=== PATIENT | female | born 1945 | race Caucasian/White ===

== ENCOUNTER → 2018-01-22 | Outpatient (CLI) | payer OTHER ==
[~2018-01-22] MED LIST: ASPI325 PO; ATOR40TA; CLOP75; HYDCHL12.5 PO; MELO7.5; META800
[2018-01-22 11:44] LABS: BASOPHILS ABSOLUTE AUTO 0.05 K/mm3 (0.00-0.23); BASOPHILS PERCENT AUTO 1 % (0-2); EOSINOPHILS ABSOLUTE AUTO 0.06 K/mm3 (0.00-0.68); EOSINOPHILS PERCENT AUTO 1 % (0-6); Hematocrit 44.7 % (33.0-51.0); Hemoglobin 16.2 g/dL (11.5-16.0); IMMATURE GRAN ABSOLUTE AUTO 0.08 K/mm3 (0.00-0.10); IMMATURE GRAN PERCENT AUTO 1 % (0-1); LYMPHOCYTES ABSOLUTE AUTO 1.32 K/mm3 (0.84-5.20); LYMPHOCYTES PERCENT AUTO 13 % (21-46); MONOCYTES ABSOLUTE AUTO 0.38 K/mm3 (0.16-1.47); MONOCYTES PERCENT AUTO 4 % (4-13); Mean Corpuscular HGB 31.2 pg (26.0-34.0); Mean Corpuscular HGB Conc 36.2 g/dL (31.5-36.5); Mean Corpuscular Volume 86 fL (80-100); Mean Platelet Volume 10.1 fL (9.1-12.4); NEUTROPHILS ABSOLUTE AUTO 8.27 K/mm3 (1.96-9.15); NEUTROPHILS PERCENT AUTO 81 % (41-73); Platelet Count 273 K/mm3 (150-400); RDW Coefficient Variation 12.6 % (11.7-14.2); RDW Standard Deviation 38.9 fL (35.1-46.3); White Blood Cell Count 10.16 K/mm3 (4.00-11.30)
[2018-01-22 11:54] LABS: Albumin, Blood 4.3 g/dL (3.4-5.0); Albumin/Globulin Ratio 1.3 (0.8-1.8); Bilirubin, Total 0.7 mg/dL (0.1-1.0); Bun/Creatinine Ratio 13.1 (12.0-20.0); Calcium, Blood 10.4 mg/dL (8.5-10.1); Creatinine, Blood 1.3 mg/dL (0.40-1.00); Globulin, Blood 3.4 g/dL (2.2-4.0); Potassium, Blood 3.8 mmol/L (3.5-5.5); Total Protein, Blood 7.7 g/dL (6.4-8.2)
== END | disposition home or self-care (01) ==
LOC: LAB EV 11:40
PROVIDERS: Physician Assistant Surgical
DX: R10.31 Right lower quadrant pain (principal)
CPT/HCPCS: 80053; 85025

== ENCOUNTER 2018-10-17 02:54 | Emergency (ER) | payer OTHER ==
[~2018-10-17] VITALS: Ht 160 cm; Wt 56.2 kg
[2018-10-17 03:34] LABS: BASOPHILS ABSOLUTE AUTO 0.06 K/mm3 (0.00-0.23); BASOPHILS PERCENT AUTO 1 % (0-2); EOSINOPHILS ABSOLUTE AUTO 0.17 K/mm3 (0.00-0.68); EOSINOPHILS PERCENT AUTO 3 % (0-6); Hematocrit 41.9 % (33.0-51.0); Hemoglobin 14.7 g/dL (11.5-16.0); IMMATURE GRAN ABSOLUTE AUTO 0.01 K/mm3 (0.00-0.10); IMMATURE GRAN PERCENT AUTO 0 % (0-1); LYMPHOCYTES ABSOLUTE AUTO 2.35 K/mm3 (0.84-5.20); LYMPHOCYTES PERCENT AUTO 37 % (21-46); MONOCYTES ABSOLUTE AUTO 0.58 K/mm3 (0.16-1.47); MONOCYTES PERCENT AUTO 9 % (4-13); Mean Corpuscular HGB 31.6 pg (26.0-34.0); Mean Corpuscular HGB Conc 35.1 g/dL (31.5-36.5); Mean Corpuscular Volume 90 fL (80-100); Mean Platelet Volume 10.3 fL (9.1-12.4); NEUTROPHILS ABSOLUTE AUTO 3.27 K/mm3 (1.96-9.15); NEUTROPHILS PERCENT AUTO 51 % (41-73); Platelet Count 252 K/mm3 (150-400); RDW Coefficient Variation 12.3 % (11.7-14.2); Red Blood Cell Count 4.65 M/mm3 (3.80-5.20); White Blood Cell Count 6.44 K/mm3 (4.00-11.30)
[2018-10-17 03:48] LABS: Alanine Aminotransfer (ALT/SGP 23 U/L (12-78); Albumin, Blood 3.7 g/dL (3.4-5.0); Albumin/Globulin Ratio 1.1 (0.8-1.8); Alk Phos 77 U/L (50-136); Anion Gap 10 mmol/L (6-16); Aspartate Aminotrans (AST/SGOT 21 U/L (12-37); Bilirubin, Total 0.5 mg/dL (0.1-1.0); Blood Urea Nitrogen 22 mg/dL (8-24); Bun/Creatinine Ratio 18.5 (12.0-20.0); CO2, Blood 26 mmol/L (21-32); Chloride, Blood 104 mmol/L (98-108); Creatinine, Blood 1.19 mg/dL (0.40-1.00); Globulin, Blood 3.5 g/dL (2.2-4.0); Glomerular Filtration Rate 47 (60-); Glucose, Blood 100 mg/dL (70-99); Potassium, Blood 3.3 mmol/L (3.5-5.5); Sodium, Blood 140 mmol/L (136-145); Total Protein, Blood 7.2 g/dL (6.4-8.2); Troponin I <0.015 ng/mL (0.000-0.040)
== END 2018-10-17 05:06 | disposition home or self-care (01) ==
LOC: ER 02:54
PROVIDERS: Emergency Medicine
DX: R55 Syncope and collapse (principal); E86.0 Dehydration; I10 Essential (primary) hypertension; Z79.899 Other long term (current) drug therapy; Z79.82 Long term (current) use of aspirin
CPT/HCPCS: 36415; 80053; 83735; 84484; 85025; 93005; 93010; 96360; 99284-25; J7030

== ENCOUNTER 2020-09-20 05:56 | Emergency (ER) | payer OTHER ==
[~2020-09-20] VITALS: Ht 157.5 cm; Wt 56.7 kg
[2020-09-20 06:12] LABS: Source, Urine Catheter
[2020-09-20 06:18] LABS: BASOPHILS ABSOLUTE AUTO 0.08 K/mm3 (0.00-0.23); BASOPHILS PERCENT AUTO 1 % (0-2); EOSINOPHILS ABSOLUTE AUTO 0.19 K/mm3 (0.00-0.68); EOSINOPHILS PERCENT AUTO 2 % (0-6); Hematocrit 39.9 % (33.0-51.0); Hemoglobin 13.7 g/dL (11.5-16.0); IMMATURE GRAN ABSOLUTE AUTO 0.03 K/mm3 (0.00-0.10); IMMATURE GRAN PERCENT AUTO 0 % (0-1); LYMPHOCYTES ABSOLUTE AUTO 1.57 K/mm3 (0.84-5.20); LYMPHOCYTES PERCENT AUTO 15 % (21-46); MONOCYTES ABSOLUTE AUTO 0.61 K/mm3 (0.16-1.47); MONOCYTES PERCENT AUTO 6 % (4-13); Mean Corpuscular HGB 30.3 pg (26.0-34.0); Mean Corpuscular HGB Conc 34.3 g/dL (31.5-36.5); Mean Corpuscular Volume 88 fL (80-100); Mean Platelet Volume 9.5 fL (9.1-12.4); NEUTROPHILS ABSOLUTE AUTO 7.75 K/mm3 (1.96-9.15); NEUTROPHILS PERCENT AUTO 76 % (41-73); Platelet Count 272 K/mm3 (150-400); RDW Coefficient Variation 12.2 % (11.7-14.2); RDW Standard Deviation 39.5 fL (35.1-46.3); Red Blood Cell Count 4.52 M/mm3 (3.80-5.20); White Blood Cell Count 10.23 K/mm3 (4.00-11.30)
[2020-09-20 06:26] LABS: Appearance, Urine Hazy (Clear); Blood, Urine 5+ (Neg); Color, Urine Yellow (P-Yellow); Glucose Qualitative, Urine Neg (Neg); Ketones, Urine 1+ (Neg); Leukocyte Esterase, Urine 3+ (Neg); Nitrite, Urine Pos (Neg); Protein, Urine 3+ (Neg); Urobilinogen, Urine 1+ (Normal)
[2020-09-20 06:38] LABS: Albumin, Blood 3.8 g/dL (3.4-5.0); Albumin/Globulin Ratio 1.3 (0.8-1.8); Bilirubin, Total 0.6 mg/dL (0.1-1.0); Bun/Creatinine Ratio 10.9 (12.0-20.0); Calcium, Blood 9.2 mg/dL (8.5-10.1); Creatinine, Blood 1.19 mg/dL (0.40-1.00); Globulin, Blood 2.9 g/dL (2.2-4.0); Potassium, Blood 3.2 mmol/L (3.5-5.5); Total Protein, Blood 6.7 g/dL (6.4-8.2)
[2020-09-20 06:39] LABS: Bilirubin, Urine 1+ (Neg)
[2020-09-20 06:42] LABS: Red Blood Cells, Urine TNTC /hpf (0-2)
[2020-09-20 06:43] LABS: Bacteria Many /hpf; Squamous Epithelial Cells Rare /hpf (Few)
[2020-09-20] MEDS ORDERED: CEFP200 PO (07:19)
== END 2020-09-20 08:34 | disposition home or self-care (01) ==
LOC: ER 05:56
PROVIDERS: Emergency Medicine
DX: N39.0 Urinary tract infection, site not specified (principal); I10 Essential (primary) hypertension; I25.10 Atherosclerotic heart disease of native coronary artery without angina pectoris; Z79.82 Long term (current) use of aspirin; Z79.899 Other long term (current) drug therapy
CPT/HCPCS: 36415; 51798; 80053; 81001; 83690; 85025; 87077; 87086; 87186; 96365; 96375; 99284-25; J0696; J2405; J3010; J7030

== ENCOUNTER 2022-06-17 10:00 | Day surgery (SDC) | payer OTHER ==
[~2022-06-17] VITALS: Ht 160 cm; Wt 58.8 kg
[~2022-06-17 10:00] MED LIST changes: +ATOR10 PO; +CEFP200 PO
== END 2022-06-17 12:00 | disposition home or self-care (01) ==
LOC: ORSCSDS 10:00
PROVIDERS: Orthopaedic Surgery
PROC: 01N54ZZ Release Median Nerve, Percutaneous Endoscopic Approach (ICD-10-PCS; principal; 2022-06-17 11:15)
DX: G56.02 Carpal tunnel syndrome, left upper limb (principal); I10 Essential (primary) hypertension; I25.10 Atherosclerotic heart disease of native coronary artery without angina pectoris; Z79.899 Other long term (current) drug therapy
CPT/HCPCS: J2250; J3010

== ENCOUNTER → 2022-10-10 | Outpatient (CLI) | payer OTHER ==
[~2022-10-10] MED LIST changes: +ONDA4ODT MM; +PROM25 PO; +Vistaril25 MG PO
== END | disposition home or self-care (01) ==
LOC: LAB 16:32 → LAB SHORT 16:32
DX: R82.90 Unspecified abnormal findings in urine (principal)
CPT/HCPCS: 87086

== ENCOUNTER 2022-10-11 00:06 | Emergency (ER) | payer OTHER ==
[~2022-10-11] VITALS: Ht 167.6 cm; Wt 56.7 kg
[~2022-10-11 00:06] MED LIST changes: -ONDA4ODT MM; -PROM25 PO; -Vistaril25 MG PO
[2022-10-11 01:22] LABS: BASOPHILS ABSOLUTE AUTO 0.01 K/mm3 (0.00-0.23); BASOPHILS PERCENT AUTO 0 % (0-2); EOSINOPHILS ABSOLUTE AUTO 0.01 K/mm3 (0.00-0.68); EOSINOPHILS PERCENT AUTO 0 % (0-6); Hematocrit 39.5 % (33.0-51.0); Hemoglobin 14.5 g/dL (11.5-16.0); IMMATURE GRAN PERCENT AUTO 0 % (0-1); LYMPHOCYTES ABSOLUTE AUTO 1.47 K/mm3 (0.84-5.20); LYMPHOCYTES PERCENT AUTO 56 % (21-46); MONOCYTES ABSOLUTE AUTO 0.27 K/mm3 (0.16-1.47); MONOCYTES PERCENT AUTO 10 % (4-13); Mean Corpuscular HGB 30.9 pg (26.0-34.0); Mean Corpuscular HGB Conc 36.7 g/dL (31.5-36.5); Mean Corpuscular Volume 84 fL (80-100); NEUTROPHILS ABSOLUTE AUTO 0.87 K/mm3 (1.96-9.15); NEUTROPHILS PERCENT AUTO 33 % (41-73); Platelet Count 228 K/mm3 (150-400); RDW Coefficient Variation 12.1 % (11.7-14.2); RDW Standard Deviation 36.8 fL (35.1-46.3); White Blood Cell Count 2.63 K/mm3 (4.00-11.30)
[2022-10-11 01:49] LABS: Albumin, Blood 3.7 g/dL (3.4-5.0); Albumin/Globulin Ratio 1.1 (0.8-1.8); Bilirubin, Total 0.5 mg/dL (0.1-1.0); Calcium, Blood 9.1 mg/dL (8.5-10.1); Creatinine, Blood 1.1 mg/dL (0.40-1.00); Globulin, Blood 3.3 g/dL (2.2-4.0); Potassium, Blood 3.7 mmol/L (3.5-5.5); Thyroid Stimulating Hormone 1.67 uIU/mL (0.360-4.800)
[2022-10-11 01:56] LABS: BAND PERCENT MAN 1 % (0-8); BASOPHILS PERCENT MAN 0 % (0-2); EOSINOPHILS ABSOLUTE MAN 0.02 K/mm3 (0.00-0.68); EOSINOPHILS PERCENT MAN 1 % (0-6); LYMPHOCYTES ABSOLUTE MAN 1.36 K/mm3 (0.84-5.20); LYMPHOCYTES PERCENT MAN 52 % (21-46); MONOCYTES ABSOLUTE MAN 0.31 K/mm3 (0.16-1.47); MONOCYTES PERCENT MAN 12 % (4-13); NEUTROPHILS ABSOLUTE MAN 0.92 K/mm3 (1.96-9.15); SEG NEUTROPHILS PERCENT MAN 34 % (41-73); TOTAL CELLS COUNTED 100
[2022-10-11] MEDS ORDERED: PROM25 PO (02:12)
[2022-10-12] MEDS ORDERED: ONDA4ODT MM (11:42)
[2022-10-12] MEDS ORDERED: Vistaril25 MG PO (12:08)
== END 2022-10-11 02:33 | disposition home or self-care (01) ==
LOC: ER 00:06
PROVIDERS: Emergency Medicine
DX: B34.9 Viral infection, unspecified (principal); R11.0 Nausea; F41.9 Anxiety disorder, unspecified; I12.9 Hypertensive chronic kidney disease with stage 1 through stage 4 chronic kidney disease, or unspecified chronic kidney disease; N18.30 Chronic kidney disease, stage 3 unspecified; Z28.310 Unvaccinated for COVID-19
CPT/HCPCS: 36415; 80053; 83690; 84443; 85025; 93005; 93010; A9270

== ENCOUNTER 2022-10-12 08:09 | Emergency (ER) | payer OTHER ==
[~2022-10-12] VITALS: Ht 157.5 cm; Wt 56.7 kg
[~2022-10-12 08:09] MED LIST changes: +PROM25 PO
[2022-10-12 11:18] LABS: Influenza B, PCR NEGATIVE (NEGATIVE); Resp Syncytial Virus, PCR NEGATIVE (NEGATIVE); SARS-Cov-2 (COVID-19) PCR, MMC NEGATIVE (NEGATIVE)
[2022-10-12 11:23] LABS: Influenza A, PCR POSITIVE (NEGATIVE)
[2022-10-12] MEDS ORDERED: ONDA4ODT MM (11:42)
[2022-10-12] MEDS ORDERED: Vistaril25 MG PO (12:08)
== END 2022-10-12 12:53 | disposition home or self-care (01) ==
LOC: ER 08:09
PROVIDERS: Student in an Organized Health Care Education/Training Program
DX: J10.1 Influenza due to other identified influenza virus with other respiratory manifestations (principal); I10 Essential (primary) hypertension; Z20.822 Contact with and (suspected) exposure to COVID-19; Z79.899 Other long term (current) drug therapy
CPT/HCPCS: 0241U; J2405; J7030

== ENCOUNTER → 2023-06-09 | Outpatient (CLI) | payer OTHER ==
[~2023-06-09] MED LIST changes: +ONDA4ODT MM; +Vistaril25 MG PO
[2023-06-09 17:26] LABS: BASOPHILS ABSOLUTE AUTO 0.07 K/mm3 (0.00-0.23); BASOPHILS PERCENT AUTO 1 % (0-2); EOSINOPHILS ABSOLUTE AUTO 0.05 K/mm3 (0.00-0.68); EOSINOPHILS PERCENT AUTO 1 % (0-6); Hematocrit 41.8 % (33.0-51.0); Hemoglobin 14.4 g/dL (11.5-16.0); IMMATURE GRAN ABSOLUTE AUTO 0.03 K/mm3 (0.00-0.10); IMMATURE GRAN PERCENT AUTO 0 % (0-1); LYMPHOCYTES ABSOLUTE AUTO 1.55 K/mm3 (0.84-5.20); LYMPHOCYTES PERCENT AUTO 18 % (21-46); MONOCYTES ABSOLUTE AUTO 0.68 K/mm3 (0.16-1.47); MONOCYTES PERCENT AUTO 8 % (4-13); Mean Corpuscular HGB 30.8 pg (26.0-34.0); Mean Corpuscular HGB Conc 34.4 g/dL (31.5-36.5); Mean Corpuscular Volume 89 fL (80-100); Mean Platelet Volume 10.4 fL (9.1-12.4); NEUTROPHILS ABSOLUTE AUTO 6.18 K/mm3 (1.96-9.15); NEUTROPHILS PERCENT AUTO 72 % (41-73); Platelet Count 259 K/mm3 (150-400); RDW Coefficient Variation 12.4 % (11.7-14.2); Red Blood Cell Count 4.68 M/mm3 (3.80-5.20); White Blood Cell Count 8.56 K/mm3 (4.00-11.30)
[2023-06-09 18:23] LABS: Very Low Density Lipoprot Chol 13 mg/dL (6-32)
[2023-06-09 18:24] LABS: Alanine Aminotransfer (ALT/SGP 25 U/L (12-78); Albumin/Globulin Ratio 1.1 (0.8-1.8); Alk Phos 82 U/L (50-136); Anion Gap 8 mmol/L (6-16); Aspartate Aminotrans (AST/SGOT 20 U/L (12-37); Bilirubin, Total 0.8 mg/dL (0.1-1.0); Blood Urea Nitrogen 19 mg/dL (8-24); CHOL/HDL RATIO 3.6; CO2, Blood 27 mmol/L (21-32); Calcium, Blood 9.8 mg/dL (8.5-10.1); Chloride, Blood 103 mmol/L (98-108); Cholesterol 261 mg/dL (50-200); Creatinine, Blood 1.12 mg/dL (0.40-1.00); Globulin, Blood 3.5 g/dL (2.2-4.0); Glomerular Filtration Rate 50 (60-); Glucose, Blood 100 mg/dL (70-99); HDL Cholesterol 73 mg/dL (>39); LDL/HDL RATIO 2.4; Low Density Lipoprotein Chol 175 mg/dL (0-110); Potassium, Blood 4.1 mmol/L (3.5-5.5); Sodium, Blood 138 mmol/L (136-145); Total Protein, Blood 7.5 g/dL (6.4-8.2); Triglycerides 65 mg/dL (30-160)
== END | disposition home or self-care (01) ==
LOC: LAB 15:06 → LAB SHORT 15:06
PROVIDERS: Nurse Practitioner Family
DX: I10 Essential (primary) hypertension (principal)
CPT/HCPCS: 80053; 80061; 85025

== ENCOUNTER 2023-08-06 20:44 | Inpatient (IN) | payer OTHER ==
[~2023-08-06] VITALS: Ht 157.5 cm; Wt 57.8 kg
[2023-08-06 21:30] LABS: Albumin, Blood 3.9 g/dL (3.4-5.0); Albumin/Globulin Ratio 1.4 (0.8-1.8); Bilirubin, Total 0.4 mg/dL (0.1-1.0); Bun/Creatinine Ratio 15.3 (12.0-20.0); Calcium, Blood 9.1 mg/dL (8.5-10.1); Creatinine, Blood 1.31 mg/dL (0.40-1.00); Globulin, Blood 2.7 g/dL (2.2-4.0); Potassium, Blood 3.5 mmol/L (3.5-5.5); Total Protein, Blood 6.6 g/dL (6.4-8.2)
[2023-08-06 21:31] LABS: BASOPHILS ABSOLUTE AUTO 0.07 K/mm3 (0.00-0.23); BASOPHILS PERCENT AUTO 1 % (0-2); EOSINOPHILS ABSOLUTE AUTO 0.29 K/mm3 (0.00-0.68); EOSINOPHILS PERCENT AUTO 4 % (0-6); Hematocrit 38.2 % (33.0-51.0); Hemoglobin 13.4 g/dL (11.5-16.0); IMMATURE GRAN ABSOLUTE AUTO 0.01 K/mm3 (0.00-0.10); IMMATURE GRAN PERCENT AUTO 0 % (0-1); LYMPHOCYTES ABSOLUTE AUTO 2.35 K/mm3 (0.84-5.20); LYMPHOCYTES PERCENT AUTO 34 % (21-46); MONOCYTES ABSOLUTE AUTO 0.41 K/mm3 (0.16-1.47); MONOCYTES PERCENT AUTO 6 % (4-13); Mean Corpuscular HGB 31.1 pg (26.0-34.0); Mean Corpuscular HGB Conc 35.1 g/dL (31.5-36.5); Mean Corpuscular Volume 89 fL (80-100); Mean Platelet Volume 10.1 fL (9.1-12.4); NEUTROPHILS ABSOLUTE AUTO 3.75 K/mm3 (1.96-9.15); NEUTROPHILS PERCENT AUTO 55 % (41-73); Platelet Count 275 K/mm3 (150-400); RDW Coefficient Variation 12.5 % (11.7-14.2); Red Blood Cell Count 4.31 M/mm3 (3.80-5.20); White Blood Cell Count 6.88 K/mm3 (4.00-11.30)
[2023-08-07] VITALS (23 sets, daily range): BP systolic 118–178; BP diastolic 62–82
[2023-08-07 00:30] LABS: Anti-Xa UFH, PHA Monitoring <0.10 IU/mL; International Normalized Ratio 0.97; Prothrombin Time Results 10.2 Sec (9.7-11.5)
--- NOTE | 2023-08-07 01:00 | NUR ---
ARRIVAL TO [facility] PT ARRIVED TO [facility] AT APPROXIMATELY 0045. PT TRANSFERED FROM [facility] TO HOSPITAL BED WITH SBA. UPON ARRIVAL PT AMBULATED TO BATHROOM WITH SBA. PT CONTINENT OF URINE, NO BM AT THIS TIME. A&Ox4, ORIENTED TO CALL LIGHT/UNIT. PT DENIES CP/PRESSURE. BP ELEVATED, WILL MEDICATE PER EMAR. SpO2> 92% RA, DENIES SOB. HEPARIN gtt STARTED PER EMAR, MANAGED BY PHARMACY. NS INFUSING PER EMAR. PT NPO. BED IN LOWEST POSITION, CALL LIGHT IN REACH.
--- NOTE | 2023-08-07 04:42 | NUR ---
SHIFT SUMMARY SEE PREVIOUS NOTE. A&Ox4, CALLS AND COMMUNICATES NEEDS APPROPRIATELY. BP ELEVATED, PHYSICIAN NOTIFIED, ORDERS PLACED. BP RESPONDING WELL TO PRN HTN MEDICATION. SINUS 60's, DENIES CP/PRESSURE. SpO2> 92% RA, DENIES SOB. SBA TO BATHROOM, CONTINENT OF URINE, NO BM THIS SHIFT. HEPARIN gtt INFUSING PER EMAR, MANAGED BY PHARMACY. NS INFUSING PER EMAR. PT NPO. NO OTHER EVENTS, WILL REPORT TO ONCOMING RN.
[2023-08-07 07:50] LABS: BASOPHILS ABSOLUTE AUTO 0.07 K/mm3 (0.00-0.23); BASOPHILS PERCENT AUTO 1 % (0-2); EOSINOPHILS ABSOLUTE AUTO 0.27 K/mm3 (0.00-0.68); EOSINOPHILS PERCENT AUTO 4 % (0-6); Hematocrit 39.6 % (33.0-51.0); Hemoglobin 13.7 g/dL (11.5-16.0); IMMATURE GRAN ABSOLUTE AUTO 0.01 K/mm3 (0.00-0.10); IMMATURE GRAN PERCENT AUTO 0 % (0-1); LYMPHOCYTES ABSOLUTE AUTO 2.28 K/mm3 (0.84-5.20); LYMPHOCYTES PERCENT AUTO 35 % (21-46); MONOCYTES ABSOLUTE AUTO 0.44 K/mm3 (0.16-1.47); MONOCYTES PERCENT AUTO 7 % (4-13); Mean Corpuscular HGB 30.4 pg (26.0-34.0); Mean Corpuscular HGB Conc 34.6 g/dL (31.5-36.5); Mean Corpuscular Volume 88 fL (80-100); Mean Platelet Volume 10.2 fL (9.1-12.4); NEUTROPHILS ABSOLUTE AUTO 3.42 K/mm3 (1.96-9.15); NEUTROPHILS PERCENT AUTO 53 % (41-73); Platelet Count 268 K/mm3 (150-400); RDW Coefficient Variation 12.4 % (11.7-14.2); RDW Standard Deviation 39.7 fL (35.1-46.3); White Blood Cell Count 6.49 K/mm3 (4.00-11.30)
[2023-08-07 08:09] LABS: Albumin, Blood 3.6 g/dL (3.4-5.0); Albumin/Globulin Ratio 0.9 (0.8-1.8); Bilirubin, Total 0.7 mg/dL (0.1-1.0); Bun/Creatinine Ratio 15.4 (12.0-20.0); Creatinine, Blood 1.17 mg/dL (0.40-1.00); Globulin, Blood 3.9 g/dL (2.2-4.0); Potassium, Blood 3.4 mmol/L (3.5-5.5); Total Protein, Blood 7.5 g/dL (6.4-8.2)
--- NOTE | 2023-08-07 10:59 | NUR ---
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 ECHO ORDERED WELL. FAMILY AT THE BEDSIDE SON AND MADE AWARE OF THE PLANS, PT HAS BEEN GETTING UP INDEPENDENTLY TO USE THE BATHROOM ASSISTANCE NEEDED WITH IV LINES AND TUBINGS. NO OTHER ISSUES REPORTED WILL CONTINUE TO MONITOR
--- NOTE | 2023-08-07 15:00 | NUR ---
Assumed care. Pt arrived to ICU at approximately 1218 from [facility]. Pt alert and oriented, on RA. R/radial access site TR band in place, 11 ml air per [facility] RN. R/fem arterial line in place, site wnl. Pt denies SOB/chest pressure/pain/numbness or tingling in extremities. Physical assessement unremarkable, agrees with previous assessemnt. Pt brought to bedside. Dr. Flores by to see pt and give instructions for pulling groin access sheath. No acute needs, pt resting comfortably at this time.
--- NOTE | 2023-08-07 18:27 | NUR ---
Shift summary. Pt remains supine with R/fem sheath in place. Last PTT drawn at 1800. Per Dr. Flores, once PTT is below 50 sheath can be removed, see nurse notify. R/radial TR band in place, band re-inflated at 1750 d/t some slight swelling around puncture site/tourniquet. 11 ml air currently in band. Pt alert and oriented, on RA, sinus rhythm on monitor. VS stable, no acute needs this afternoon. Will report off to nightshift RN.
--- NOTE | 2023-08-07 19:00 | NUR ---
ASSUMED CARE CARE WAS ASSUMED OF PT AT 1900, REPORT GIVEN BY ERIC GARCIA. PT A/O X4, ABLE TO MAKE NEEDS KNOWN AND PARTICIPATE IN CONVERSATION. PT LAYING SUPINE WITH HOB FLAT. PT ON RA, O2 SATS 100%. CARDIAC MONITORING REFLECTS NSR. SBP 110s. HR 70s. ARTERIAL SHEATH IN PLACE AT FEMORAL ACCESS SITE. TR BAND IN PLACE AT RIGHT RADIAL ACCESS SITE. PLAN TO REMOVE. PT NOT COMPLAINING OF CHEST PAIN OR SOB.
--- NOTE | 2023-08-07 22:54 | NUR ---
SHEATH REMOVAL ARTERIAL SHEATH WAS REMOVED FROM RIGHT FEMORAL ACCESS SITE AT 2115. PRESSURE HELD FOR 20 MINUTES. PT HAD MINIMAL AMOUNT OF BLOOD LOSS FROM REMOVAL. SMALL AMOUNT OF BRUISING NOTED AROUND ACCESS SITE. NO FIRMNESS OR HEMATOMA NOTED. PT NOT COMPLAINING OF BACK OR GROIN PAIN. PT'S BP STABLE DURING REMOVAL. ACCESS SITE COVERED WITH JONATHAN DRESSING. CONTINUING TO MONITOR.
[2023-08-08] VITALS (20 sets, daily range): BP systolic 105–149; BP diastolic 49–89
[2023-08-08 03:26] LABS: Hematocrit 39.8 % (33.0-51.0); Hemoglobin 13.7 g/dL (11.5-16.0); Mean Corpuscular HGB 31.4 pg (26.0-34.0); Mean Corpuscular HGB Conc 34.4 g/dL (31.5-36.5); Mean Corpuscular Volume 91 fL (80-100); Mean Platelet Volume 10.3 fL (9.1-12.4); Platelet Count 238 K/mm3 (150-400); RDW Coefficient Variation 12.8 % (11.7-14.2); RDW Standard Deviation 41.8 fL (35.1-46.3); Red Blood Cell Count 4.36 M/mm3 (3.80-5.20); White Blood Cell Count 10.62 K/mm3 (4.00-11.30)
--- NOTE | 2023-08-08 03:47 | NUR ---
TR BAND REMOVAL BEGAN DEFLATING TR BAND AT 2137. DEFLATED TR BAND 1 ML Q 30 MIN. NO OOZING NOTED. BRUISING NOTED AROUND ACCESS SITE. 13 ML OF AIR REMOVED. TR BAND REMOVED AND DRESSING PLACED OVER ACCESS SITE AT 0344. WILL CONTINUE TO MONITOR SITE. PT EDUCATED TO CONTINUE WITH KEEPING RIGHT WRIST STRAIGHT AND NOT USE IT. ARM BOARD REMAINS IN PLACE.
[2023-08-08 03:50] LABS: Magnesium, Blood 2.1 mg/dL (1.6-2.4)
[2023-08-08 03:51] LABS: Bun/Creatinine Ratio 17.6 (12.0-20.0); Calcium, Blood 8.9 mg/dL (8.5-10.1); Creatinine, Blood 1.08 mg/dL (0.40-1.00)
[2023-08-08 04:23] LABS: Source, Urine Clean Catch
[2023-08-08 04:32] LABS: Appearance, Urine Clear (Clear); Bilirubin, Urine Neg (Neg); Blood, Urine 4+ (Neg); Color, Urine Yellow (P-Yellow); Glucose Qualitative, Urine Neg (Neg); Ketones, Urine 3+ (Neg); Leukocyte Esterase, Urine Neg (Neg); Nitrite, Urine Neg (Neg); Protein, Urine 2+ (Neg); Urobilinogen, Urine NORM (Normal)
[2023-08-08 05:32] LABS: Bacteria Few /hpf; Squamous Epithelial Cells Few /hpf (Few); White Blood Cells, Urine 0-2 /hpf (0-5)
--- NOTE | 2023-08-08 06:28 | NUR ---
SHIFT SUMMARY PT REMAINS A/O X4. PT ON RA, O2 SATS 100%. CARDIAC MONITORING HAS REFLECTED NSR, HR 70s-80s. SBP 110s-130s. ARTERIAL SHEATH AT RIGHT FEMORAL ACCESS SITE PULLED THIS SHIFT WITHOUT COMPLICATIONS. NO OOZING AND MINIMAL BRUISING NOTED AROUND INSERTION SITE. JONATHAN DRESSING IN PLACE. TR BAND ALSO DEFLATED THIS SHIFT. BRUISING NOTED AROUND WRIST, NO OOZING OBSERVED. DRESSING IN PLACE. 2 PIVs SL. ONCE PT WAS ABLE TO AMBULATE, PT WAS ABLE TO USE BSC WITH 1 NURSE ASSIST. POTASSIUM REPLACED. PT HAS DENIED CHEST PAIN AND CHEST PRESSURE THIS SHIFT. WILL CONTINUE TO MONITOR UNTIL CARE IS TRANSITIONED TO DAY SHIFT.
[2023-08-08] MEDS ORDERED: AMLO5 PO (11:42)
[2023-08-08] MEDS ORDERED: ASPI81CH PO (11:42)
[2023-08-08] MEDS ORDERED: ATOR40TA PO (11:43)
[2023-08-08] MEDS ORDERED: CLOP75 PO (11:43)
[2023-08-08] MEDS ORDERED: METO25ER PO (11:44)
--- NOTE | 2023-08-08 12:31 | NUR ---
DISCHARGE PT AND SPOUSE VERBALIZED UNDERSTANDING OF DISCHARGE INSTRUCTIONS. PT DRESSED SELF. ARMBOARD REMAINS IN PLACE. PT VERBALIZED UNDERSTANDING OF INSTRUCTIONS RELATED TO RIGHT RADIAL SITE AND RIGHT FEMORAL SITE. ALL PT BELONGINGS SENT WITH PT. PT TAKEN OUT TO VEHICLE VIA WHEELCHAIR.
== END 2023-08-08 12:27 | disposition home or self-care (01) | DRG 322 ==
LOC: ER 20:44 → PCU 20:45 → ICUE 08-07 12:17
PROVIDERS: Internal Medicine; Physician Assistant; ADMIT Internal Medicine
PROC: 027034Z Dilation of Coronary Artery, One Artery with Drug-eluting Intraluminal Device, Percutaneous Approach (ICD-10-PCS; principal; 2023-08-07)
PROC: B240ZZ3 Ultrasonography of Single Coronary Artery, Intravascular (ICD-10-PCS; 2023-08-07)
PROC: B2111ZZ Fluoroscopy of Multiple Coronary Arteries using Low Osmolar Contrast (ICD-10-PCS; 2023-08-07)
PROC: B24BZZZ Ultrasonography of Heart with Aorta (ICD-10-PCS; 2023-08-07)
DX: I21.4 Non-ST elevation (NSTEMI) myocardial infarction (principal); N17.9 Acute kidney failure, unspecified; T82.855A Stenosis of coronary artery stent, initial encounter; I25.10 Atherosclerotic heart disease of native coronary artery without angina pectoris; E78.5 Hyperlipidemia, unspecified; N18.2 Chronic kidney disease, stage 2 (mild); I12.9 Hypertensive chronic kidney disease with stage 1 through stage 4 chronic kidney disease, or unspecified chronic kidney disease; E87.6 Hypokalemia; Z95.5 Presence of coronary angioplasty implant and graft; Z79.82 Long term (current) use of aspirin
CPT/HCPCS: 36415; 71046; 76937; 80048; 80053; 81001; 83735; 83880; 84484; 85025; 85027; 85347; 85520; 85610; 85730; 92978; 93005; 93010; 93306; 93454; 96375; 96376; 99152; 99153; A9270; C1725; C1753; C1769; C1874; C1887; C1894; C9600; G0378; J0360; J0461; J1644; J2250; J3010; J7030; J7040; J7050; Q9967

== ENCOUNTER 2023-10-15 00:11 | Emergency (ER) | payer OTHER ==
[~2023-10-15] VITALS: Ht 157.5 cm; Wt 58.1 kg
[~2023-10-15 00:11] MED LIST changes: +AMLO5 PO; +ASPI81CH PO; +ATOR40TA PO; +CLOP75 PO; +METO25ER PO
[2023-10-15 01:53] LABS: Source, Urine Clean Catch
[2023-10-15 01:59] LABS: Blood, Urine 4+ (Neg); Glucose Qualitative, Urine Neg (Neg); Ketones, Urine Neg (Neg); Leukocyte Esterase, Urine 3+ (Neg); Nitrite, Urine Pos (Neg); Protein, Urine 1+ (Neg); Urobilinogen, Urine 3+ (Normal)
[2023-10-15 02:09] LABS: Appearance, Urine Hazy (Clear); Bilirubin, Urine 2+ (Neg); Color, Urine Orange (P-Yellow)
[2023-10-15 02:10] LABS: Bacteria Mod /hpf; Squamous Epithelial Cells Few /hpf (Few); White Blood Cells, Urine 25-50 /hpf (0-5)
[2023-10-15 03:45] VITALS: BP 126/61
[2023-10-15] MEDS ORDERED: CEPH500 PO (03:54)
== END 2023-10-15 04:06 | disposition home or self-care (01) ==
LOC: ER 00:11
PROVIDERS: Emergency Medicine
DX: N39.0 Urinary tract infection, site not specified (principal); I25.2 Old myocardial infarction; Z88.8 Allergy status to other drugs, medicaments and biological substances; Z79.82 Long term (current) use of aspirin; Z79.899 Other long term (current) drug therapy
CPT/HCPCS: 81001; 87077; 87086; 87186; 93005; 93010; 99283-25; A9270

== ENCOUNTER → 2024-05-08 | Outpatient (CLI) | payer OTHER ==
[~2024-05-08] MED LIST changes: +CEPH500 PO
== END ==
LOC: LAB 10:00 → LAB SHORT 10:00
DX: R31.9 Hematuria, unspecified (principal)
CPT/HCPCS: 87086

== ENCOUNTER → 2025-05-03 | Outpatient (CLI) | payer OTHER | END | disposition home or self-care (01) | LOC: LAB SHORT 13:20 → LAB 13:20 | DX: N39.0 Urinary tract infection, site not specified (principal) | CPT/HCPCS: 87077; 87086; 87186 ==

== ENCOUNTER → 2025-06-02 | Outpatient (CLI) | payer OTHER | LOC: LAB 15:13 → LAB SHORT 15:13 | DX: N39.0 Urinary tract infection, site not specified (principal); R31.9 Hematuria, unspecified | CPT/HCPCS: 87077; 87086; 87186 ==

== ENCOUNTER → 2025-08-01 | Outpatient (CLI) | payer OTHER ==
[2025-08-01 17:47] LABS: BASOPHILS ABSOLUTE AUTO 0.09 K/mm3 (0.00-0.23); BASOPHILS PERCENT AUTO 1 % (0-2); EOSINOPHILS ABSOLUTE AUTO 0.29 K/mm3 (0.00-0.68); EOSINOPHILS PERCENT AUTO 4 % (0-6); Hematocrit 40.1 % (33.0-51.0); Hemoglobin 13.9 g/dL (11.5-16.0); IMMATURE GRAN ABSOLUTE AUTO 0.02 K/mm3 (0.00-0.10); IMMATURE GRAN PERCENT AUTO 0 % (0-1); LYMPHOCYTES ABSOLUTE AUTO 1.72 K/mm3 (0.84-5.20); LYMPHOCYTES PERCENT AUTO 24 % (21-46); MONOCYTES ABSOLUTE AUTO 0.44 K/mm3 (0.16-1.47); MONOCYTES PERCENT AUTO 6 % (4-13); Mean Corpuscular HGB Conc 34.7 g/dL (31.5-36.5); Mean Corpuscular Volume 91 fL (80-100); NEUTROPHILS ABSOLUTE AUTO 4.77 K/mm3 (1.96-9.15); NEUTROPHILS PERCENT AUTO 65 % (41-73); NRBC ABSOLUTE 0.00 K/mm3 (0.00-0.02); NRBC Auto 0.0 /100 WBC (0.0-0.2); Platelet Count 280 K/mm3 (150-400); RDW Coefficient Variation 12.2 % (11.7-14.2); RDW Standard Deviation 40.4 fL (35.1-46.3)
[2025-08-01 20:14] LABS: Alanine Aminotransfer (ALT/SGP 23 U/L (12-78); Albumin, Blood 3.9 g/dL (3.4-5.0); Albumin/Globulin Ratio 1.3 (0.8-1.8); Anion Gap 10 mmol/L (3-11); Aspartate Aminotrans (AST/SGOT 18 U/L (12-37); Bilirubin, Total 0.6 mg/dL (0.1-1.0); Blood Urea Nitrogen 13 mg/dL (8-24); CHOL/HDL RATIO 3.4; CO2, Blood 29 mmol/L (21-32); Calcium, Blood 9.4 mg/dL (8.5-10.1); Chloride, Blood 104 mmol/L (98-108); Cholesterol 234 mg/dL (50-200); Creatinine, Blood 1.31 mg/dL (0.40-1.00); Globulin, Blood 3.1 g/dL (2.2-4.0); Glucose, Blood 94 mg/dL (70-99); HDL Cholesterol 69 mg/dL (>39); LDL/HDL RATIO 2.2; Low Density Lipoprotein Chol 152 mg/dL (0-110); Potassium, Blood 4.2 mmol/L (3.5-5.5); Sodium, Blood 139 mmol/L (136-145); Total Protein, Blood 7.0 g/dL (6.4-8.2); Triglycerides 64 mg/dL (30-160); Very Low Density Lipoprot Chol 12 mg/dL (6-32)
== END ==
LOC: LAB SHORT 16:19 → LAB 16:19
PROVIDERS: Nurse Practitioner Family
DX: I10 Essential (primary) hypertension (principal); E78.00 Pure hypercholesterolemia, unspecified
CPT/HCPCS: 80053; 80061; 85025